=== PATIENT | female | born 1965 | race Caucasian/White ===

== ENCOUNTER 2018-02-07 11:54 | Day surgery (SDC) | payer BC ==
[2018-02-07] MEDS ORDERED: PROPOFOL 40 ML (13:11)
[2018-02-07] MEDS ORDERED: LIDOCAINE 2% (SDV) 5 ML INJ (13:11)
== END 2018-02-07 14:11 | disposition home or self-care (01) ==
LOC: GIL 11:54
DX: Z86.010 Personal history of colon polyps (principal); K64.8 Other hemorrhoids
CPT/HCPCS: 45378